=== PATIENT | male | born 1970 | race Caucasian/White ===

== ENCOUNTER 2018-03-06 14:21 | Emergency (ER) | payer MEDICAID ==
[~2018-03-06] VITALS: Ht 170.2 cm; Wt 78.0 kg
[~2018-03-06 14:21] MED LIST: CLIN300C85 PO; FLO0.4C PO; HYDR-4383 PO; IBUP-1986 PO; ONDA4TAB6 PO; ZOF4T PO
[2018-03-06 14:31] VITALS: BP 104/81
== END 2018-03-06 14:58 | disposition home or self-care (01) ==
LOC: ER 14:22
DX: G89.29 Other chronic pain (principal); R10.84 Generalized abdominal pain; R11.2 Nausea with vomiting, unspecified; F12.90 Cannabis use, unspecified, uncomplicated; Z79.899 Other long term (current) drug therapy; Z87.442 Personal history of urinary calculi; Z87.19 Personal history of other diseases of the digestive system; Z98.890 Other specified postprocedural states
CPT/HCPCS: 99281

== ENCOUNTER 2018-07-11 19:46 | Emergency (ER) | payer MEDICAID ==
[~2018-07-11] VITALS: Ht 170.2 cm; Wt 71.0 kg
[~2018-07-11 19:46] MED LIST changes: +CLIN-96 PO; -CLIN300C85 PO
[2018-07-11 19:58] VITALS: BP 131/79
== END 2018-07-11 20:45 | disposition left against medical advice (07) ==
LOC: ER 20:05
DX: R07.9 Chest pain, unspecified (principal); Z53.21 Procedure and treatment not carried out due to patient leaving prior to being seen by health care provider
CPT/HCPCS: 93005

== ENCOUNTER 2018-08-08 11:36 | Emergency (ER) | payer MEDICAID ==
[~2018-08-08] VITALS: Ht 170.2 cm; Wt 69.0 kg
[2018-08-08 13:31] VITALS: BP 125/83
== END 2018-08-08 13:33 | disposition home or self-care (01) ==
LOC: ER 11:36
DX: K40.90 Unilateral inguinal hernia, without obstruction or gangrene, not specified as recurrent (principal); F17.200 Nicotine dependence, unspecified, uncomplicated; F12.90 Cannabis use, unspecified, uncomplicated; F15.90 Other stimulant use, unspecified, uncomplicated; Z71.6 Tobacco abuse counseling; Z79.2 Long term (current) use of antibiotics; Z79.899 Other long term (current) drug therapy; Z87.442 Personal history of urinary calculi; Z98.890 Other specified postprocedural states
CPT/HCPCS: 99281

== ENCOUNTER 2018-09-09 14:22 | Emergency (ER) | payer MEDICAID ==
[~2018-09-09] VITALS: Ht 170.2 cm; Wt 73.2 kg
[2018-09-09 14:39] VITALS: BP 107/70
[2018-09-09] MEDS ORDERED: pilocarpine 2% ophthalmic drops 15ml LEFTEYE ONE (15:20)
[2018-09-09] MEDS ORDERED: ciprofloxacin 0.3% 2.5ml ophthalmic solution LEFTEYE ONE (15:20)
[2018-09-09] MEDS ORDERED: ACYC-202 PO (16:11)
== END 2018-09-09 16:25 | disposition home or self-care (01) ==
LOC: ER 14:23
DX: B02.30 Zoster ocular disease, unspecified (principal); F12.90 Cannabis use, unspecified, uncomplicated; Z86.19 Personal history of other infectious and parasitic diseases; Z87.442 Personal history of urinary calculi; Z98.890 Other specified postprocedural states; Z79.899 Other long term (current) drug therapy
CPT/HCPCS: 99283

== ENCOUNTER 2018-10-29 18:34 | Emergency (ER) | payer MEDICAID ==
[~2018-10-29] VITALS: Ht 170.2 cm; Wt 57.0 kg
[2018-10-29 19:03] VITALS: BP 123/84
[2018-10-29] MEDS ORDERED: penicillin G benzathine 1.2 million unit/2ml syringe IM ONE (21:10)
--- NOTE | 2018-10-29 23:07 | NUR ---
PATIENT HERE FOR POSSIBLE SYPHLIS. PATIENT IS WELL ORIENTED. NO DISTRESS . RX INJECTION GIVEN. DISCH HOME WITH FOLLOW UP INST. PATIENT EXHIBITS UNDERSTANDING.
== END 2018-10-29 23:15 | disposition home or self-care (01) ==
LOC: ER 18:34
DX: R49.0 Dysphonia (principal); F17.200 Nicotine dependence, unspecified, uncomplicated; F12.90 Cannabis use, unspecified, uncomplicated; Z20.2 Contact with and (suspected) exposure to infections with a predominantly sexual mode of transmission; Z86.14 Personal history of Methicillin resistant Staphylococcus aureus infection; Z87.442 Personal history of urinary calculi; Z98.890 Other specified postprocedural states
CPT/HCPCS: 96372; 99283; J0561

== ENCOUNTER 2018-11-02 11:47 | Emergency (ER) | payer MEDICAID ==
[~2018-11-02] VITALS: Ht 170.2 cm; Wt 76.4 kg
[2018-11-02 11:57] VITALS: BP 157/79
--- NOTE | 2018-11-02 14:51 | NUR ---
US TECH AT BEDSIDE
[2018-11-02] MEDS ORDERED: NAPR-56 PO (15:22)
[2018-11-02] MEDS ORDERED: HYDR-4383 PO (15:22)
[2018-11-02] MEDS ORDERED: naproxen 500mg tablet PO ONE (15:25)
[2018-11-02] MEDS ORDERED: HYDROcodone/acetaminophen 10/325mg tab PO ONE (15:25)
== END 2018-11-02 15:25 | disposition home or self-care (01) ==
LOC: ER 11:48
DX: S80.01XA Contusion of right knee, initial encounter (principal); F17.200 Nicotine dependence, unspecified, uncomplicated; F12.90 Cannabis use, unspecified, uncomplicated; F10.99 Alcohol use, unspecified with unspecified alcohol-induced disorder; Z98.890 Other specified postprocedural states; Z86.19 Personal history of other infectious and parasitic diseases; Z87.442 Personal history of urinary calculi; Z79.899 Other long term (current) drug therapy; W18.39XA Other fall on same level, initial encounter; Y93.89 Activity, other specified; Y92.89 Other specified places as the place of occurrence of the external cause; Y99.8 Other external cause status; Y90.9 Presence of alcohol in blood, level not specified
CPT/HCPCS: 73564; 93971; 99284

== ENCOUNTER 2018-12-05 16:00 | Emergency (ER) | payer MEDICAID ==
[~2018-12-05] VITALS: Ht 170.2 cm; Wt 77.8 kg
[~2018-12-05 16:00] MED LIST changes: -CLIN-96 PO; -FLO0.4C PO; -IBUP-1986 PO; -ONDA4TAB6 PO; -ZOF4T PO
[2018-12-05 16:45] VITALS: BP 145/76
== END 2018-12-05 16:51 | disposition home or self-care (01) ==
LOC: ER 16:00
DX: M71.21 Synovial cyst of popliteal space [Baker], right knee (principal); F12.90 Cannabis use, unspecified, uncomplicated; F19.90 Other psychoactive substance use, unspecified, uncomplicated; Z86.19 Personal history of other infectious and parasitic diseases; Z98.890 Other specified postprocedural states; Z79.899 Other long term (current) drug therapy
CPT/HCPCS: 99281

== ENCOUNTER 2019-01-18 02:01 | Emergency (ER) | payer MEDICAID ==
[~2019-01-18] VITALS: Ht 17.8 cm; Wt 73.6 kg
[2019-01-18 02:02] VITALS: BP 190/94
[2019-01-18] MEDS ORDERED: IBUP-1984 PO (02:24)
[2019-01-18] MEDS ORDERED: ketorolac trometh. 30mg/ml inj. IM ONE (02:25)
== END 2019-01-18 02:34 | disposition home or self-care (01) ==
LOC: ER 02:02
DX: M25.561 Pain in right knee (principal); F17.200 Nicotine dependence, unspecified, uncomplicated; F12.90 Cannabis use, unspecified, uncomplicated; F10.99 Alcohol use, unspecified with unspecified alcohol-induced disorder; Z98.890 Other specified postprocedural states; Z86.19 Personal history of other infectious and parasitic diseases; Z87.442 Personal history of urinary calculi; Z79.899 Other long term (current) drug therapy; Y90.9 Presence of alcohol in blood, level not specified
CPT/HCPCS: 96372; 99283; J1885

== ENCOUNTER 2019-02-16 20:54 | Emergency (ER) | payer MEDICAID ==
[~2019-02-16] VITALS: Ht 170.2 cm; Wt 72.7 kg
[2019-02-16] MEDS ORDERED: methylPREDNISolone sod succ 125mg/2ml vial IV ONE (21:20)
[2019-02-16] MEDS ORDERED: ipratropium/albuterol 3ml nebule NEB ONE (21:20)
[2019-02-16] MEDS ORDERED: normal saline 1000ML IV soln IV ONE (21:20)
[2019-02-16 22:12] LABS: BASOPHILS # (AUTO) 0.1 X10'3 (0-0.2); BASOPHILS % (AUTO) 0.8 % (0-1); EOSINOPHILS % (AUTO) 0.3 % (0-6); HEMATOCRIT 37.3 % (42.0-52.0); HEMOGLOBIN 12.8 g/dl (14.0-17.9); LYMPHOCYTES # (AUTO) 2.5 X10'3 (1.1-4.8); LYMPHOCYTES % (AUTO) 18.7 % (21-51); MEAN CORPUSCULAR HEMOGLOBIN 32.3 PG (27.0-31.0); MEAN CORPUSCULAR HGB CONC 34.4 g/dL (33.0-36.5); MEAN CORPUSCULAR VOLUME 93.9 FL (78-98); MEAN PLATELET VOLUME 10.6 FL (7.4-10.4); MONOCYTES # (AUTO) 1.4 X10'3 (0-0.9); MONOCYTES % (AUTO) 10.7 % (2-12); NEUTROPHILS # (AUTO) 9.1 X10'3 (1.8-7.7); NEUTROPHILS % (AUTO) 69.5 % (42-75); PLATELET COUNT 152 X10'3 (140-440); RED BLOOD COUNT 3.97 X10'6 (4.70-6.10); RED CELL DISTRIBUTION WIDTH 13.4 % (11.5-14.5); WHITE BLOOD COUNT 13.2 X10'3 (4.5-11.0)
[2019-02-16 22:26] LABS: ALANINE AMINOTRANSFERASE 31 U/L (12-78); ALBUMIN 3.4 G/DL (3.4-5.0); ALBUMIN/GLOBULIN RATIO 0.8 (1.1-1.5); ALKALINE PHOSPHATASE 86 IU/L (46-116); ANION GAP 7 (8-16); ASPARTATE AMINO TRANSFERASE 25 U/L (10-37); BILIRUBIN,TOTAL 0.6 MG/DL (0.1-1.0); BLOOD UREA NITROGEN 14 MG/DL (7-18); BUN/CREATININE RATIO 13.1 (5.4-32.0); CALCIUM 8.9 MG/DL (8.5-10.1); CHLORIDE 101 MMOL/L (99-107); CREATININE 1.07 MG/DL (0.60-1.10); GLUCOSE 97 MG/DL (70-104); POTASSIUM 3.7 MMOL/L (3.5-5.1); SODIUM 135 MMOL/L (135-145); TOTAL CARBON DIOXIDE 27.1 MMOL/L (24-32); TOTAL PROTEIN 7.9 G/DL (6.4-8.2); eGFR 74 ML/MIN
[2019-02-16 22:28] VITALS: BP 112/75
[2019-02-16] MEDS ORDERED: CefTRIAXone 2gm/D5W 50ml 50 ML IV ONE (22:45)
[2019-02-16] MEDS ORDERED: GUAI120015 PO (22:46)
[2019-02-16] MEDS ORDERED: PRED20TA PO (22:46)
[2019-02-16] MEDS ORDERED: ALBU6.7H9 INH (22:46)
[2019-02-16] MEDS ORDERED: AMOX-419 PO (22:46)
== END 2019-02-16 23:01 | disposition home or self-care (01) ==
LOC: ER 20:55
DX: J18.9 Pneumonia, unspecified organism (principal); F12.90 Cannabis use, unspecified, uncomplicated; F10.99 Alcohol use, unspecified with unspecified alcohol-induced disorder; Z87.442 Personal history of urinary calculi; Z98.890 Other specified postprocedural states; Z79.899 Other long term (current) drug therapy; Y90.9 Presence of alcohol in blood, level not specified
CPT/HCPCS: 36415; 71046; 80053; 83605; 84145; 85025; 87040; 93005; 94640; 94760; 96374; 96375; 99284; J0696; J2930; J7030; J7040; 96365

== ENCOUNTER 2019-02-27 11:17 | Emergency (ER) | payer MEDICAID, OTHER ==
[~2019-02-27] VITALS: Ht 170.2 cm; Wt 77.7 kg
[~2019-02-27 11:17] MED LIST changes: +ALBU6.7H9 INH; +AMOX-419 PO; +GUAI120015 PO; +heparin, porcine-25,000 units/D5-250ml premix IV ONE; +nitroGLYCERIN in D5W 50mg/250ml (Tridil) infusion IV ONE
[2019-02-27 11:30] VITALS: BP 128/79
--- NOTE | 2019-02-27 12:29 | NUR ---
PT ON ABO X 5 DAYS TX FOR PNE
[2019-02-27] MEDS ORDERED: ERYT1OIN6 LEFTEYE (13:56)
== END 2019-02-27 14:19 | disposition home or self-care (01) ==
LOC: ER 11:18
DX: H00.014 Hordeolum externum left upper eyelid (principal); F12.90 Cannabis use, unspecified, uncomplicated; Z86.19 Personal history of other infectious and parasitic diseases; Z98.890 Other specified postprocedural states; Z79.2 Long term (current) use of antibiotics; Z79.899 Other long term (current) drug therapy
CPT/HCPCS: 99283; J1644; J3490

== ENCOUNTER 2019-08-19 19:21 | Emergency (ER) | payer MEDICAID, OTHER ==
[~2019-08-19] VITALS: Ht 170.2 cm; Wt 75.0 kg
[~2019-08-19 19:21] MED LIST changes: -AMOX-419 PO; -heparin, porcine-25,000 units/D5-250ml premix IV ONE; -nitroGLYCERIN in D5W 50mg/250ml (Tridil) infusion IV ONE
[2019-08-19] MEDS ORDERED: ringers solution, lacted 1,000 ML IV ONE ×2 (19:55)
--- NOTE | 2019-08-19 20:18 | NUR ---
ATTEMPTED 3 IV STARTS. PT HAS A HISTORY OF IV DRUG USE. PT A DIFFICULT STICK.
[2019-08-19 20:42] LABS: ALANINE AMINOTRANSFERASE 31 U/L (12-78); ALBUMIN 3.5 G/DL (3.4-5.0); ALBUMIN/GLOBULIN RATIO 0.8 (1.1-1.5); ALKALINE PHOSPHATASE 101 IU/L (46-116); ANION GAP 9 (8-16); ASPARTATE AMINO TRANSFERASE 21 U/L (10-37); BILIRUBIN,TOTAL 0.2 MG/DL (0.1-1.0); BLOOD UREA NITROGEN 20 MG/DL (7-18); BUN/CREATININE RATIO 15.5 (5.4-32.0); CALCIUM 9.1 MG/DL (8.5-10.1); CHLORIDE 109 MMOL/L (99-107); CREATININE 1.29 MG/DL (0.60-1.10); EOSINOPHILS # (AUTO) 0.3 X10'3 (0-0.9); GLUCOSE 87 MG/DL (70-104); HEMATOCRIT 44.8 % (42.0-52.0); LYMPHOCYTES # (AUTO) 2.4 X10'3 (1.1-4.8); MAGNESIUM 1.5 MG/DL (1.5-2.4); MEAN CORPUSCULAR HEMOGLOBIN 31.6 PG (27.0-31.0); PHOSPHORUS 2.3 MG/DL (2.3-4.5); SODIUM 141 MMOL/L (135-145); TOTAL CARBON DIOXIDE 22.8 MMOL/L (24-32); TOTAL PROTEIN 8.1 G/DL (6.4-8.2); eGFR 60 ML/MIN
[2019-08-19 20:44] LABS: BASOPHILS % (AUTO) 0.6 % (0-1); EOSINOPHILS % (AUTO) 3.2 % (0-6); MEAN CORPUSCULAR HGB CONC 33.5 g/dL (33.0-36.5); MEAN CORPUSCULAR VOLUME 94.4 FL (78-98); MEAN PLATELET VOLUME 11.2 FL (7.4-10.4); MONOCYTES % (AUTO) 11.3 % (2-12); NEUTROPHILS # (AUTO) 4.8 X10'3 (1.8-7.7); NEUTROPHILS % (AUTO) 56.9 % (42-75); PLATELET COUNT 180 X10'3 (140-440); RED BLOOD COUNT 4.75 X10'6 (4.70-6.10); RED CELL DISTRIBUTION WIDTH 13.4 % (11.5-14.5); WHITE BLOOD COUNT 8.5 X10'3 (4.5-11.0)
[2019-08-19 21:05] LABS: PLATELET ESTIMATE NORMAL
--- NOTE | 2019-08-19 21:07 | NUR ---
SECOND IV FLUID BOLUS RUNNING, PT WILL BE DISCHARGED AFTER BOLUS IS FINISHED
[2019-08-19 21:08] LABS: LARGE PLATELETS MANY
[2019-08-19 21:42] VITALS: BP 143/92
== END 2019-08-19 21:44 | disposition home or self-care (01) ==
LOC: ER 19:22
DX: A05.9 Bacterial foodborne intoxication, unspecified (principal); R11.2 Nausea with vomiting, unspecified; R19.7 Diarrhea, unspecified; E86.0 Dehydration; F12.90 Cannabis use, unspecified, uncomplicated; F19.90 Other psychoactive substance use, unspecified, uncomplicated; Z86.19 Personal history of other infectious and parasitic diseases; Z87.442 Personal history of urinary calculi; Z98.890 Other specified postprocedural states; Z72.89 Other problems related to lifestyle; Z79.899 Other long term (current) drug therapy
CPT/HCPCS: 36415; 80053; 83735; 84100; 85025; 96360; 99283; J7120

== ENCOUNTER 2019-11-24 05:39 | Emergency (ER) | payer SELFPAY ==
[~2019-11-24] VITALS: Ht 170.2 cm; Wt 80.0 kg
[2019-11-24 05:42] VITALS: BP 157/92
[2019-11-24 06:13] LABS: BASOPHILS # (AUTO) 0.1 X10'3 (0-0.2); EOSINOPHILS % (AUTO) 0.3 % (0-6); LYMPHOCYTES # (AUTO) 1.6 X10'3 (1.1-4.8); MONOCYTES # (AUTO) 1.1 X10'3 (0-0.9); WHITE BLOOD COUNT 9.5 X10'3 (4.5-11.0)
[2019-11-24 06:15] LABS: BASOPHILS % (AUTO) 0.9 % (0-1); HEMATOCRIT 39.2 % (42.0-52.0); HEMOGLOBIN 13.2 g/dl (14.0-17.9); LYMPHOCYTES % (AUTO) 16.8 % (21-51); MEAN CORPUSCULAR HEMOGLOBIN 31.5 PG (27.0-31.0); MEAN CORPUSCULAR HGB CONC 33.7 g/dL (33.0-36.5); MEAN CORPUSCULAR VOLUME 93.7 FL (78-98); MEAN PLATELET VOLUME 11.4 FL (7.4-10.4); MONOCYTES % (AUTO) 11.7 % (2-12); NEUTROPHILS # (AUTO) 6.6 X10'3 (1.8-7.7); NEUTROPHILS % (AUTO) 70.3 % (42-75); PLATELET COUNT 127 X10'3 (140-440); RED BLOOD COUNT 4.19 X10'6 (4.70-6.10); RED CELL DISTRIBUTION WIDTH 13.1 % (11.5-14.5)
[2019-11-24 06:30] LABS: ALANINE AMINOTRANSFERASE 38 U/L (12-78); ALBUMIN 3.4 G/DL (3.4-5.0); ALBUMIN/GLOBULIN RATIO 0.8 (1.1-1.5); ALKALINE PHOSPHATASE 83 IU/L (46-116); ANION GAP 9 (8-16); ASPARTATE AMINO TRANSFERASE 42 U/L (10-37); BILIRUBIN,TOTAL 0.3 MG/DL (0.1-1.0); BLOOD UREA NITROGEN 11 MG/DL (7-18); BUN/CREATININE RATIO 10.8 (5.4-32.0); CALCIUM 8.5 MG/DL (8.5-10.1); CHLORIDE 101 MMOL/L (99-107); CREATININE 1.02 MG/DL (0.60-1.10); GLUCOSE 93 MG/DL (70-104); POTASSIUM 3.4 MMOL/L (3.5-5.1); SODIUM 133 MMOL/L (135-145); TOTAL CARBON DIOXIDE 23.4 MMOL/L (24-32); TOTAL PROTEIN 7.5 G/DL (6.4-8.2); eGFR 78 ML/MIN
[2019-11-24] MEDS ORDERED: NALO4SPR BOTHNARES (06:33)
== END 2019-11-24 06:52 | disposition home or self-care (01) ==
LOC: ER 05:40
DX: R07.89 Other chest pain (principal); R42 Dizziness and giddiness; F11.90 Opioid use, unspecified, uncomplicated; F12.90 Cannabis use, unspecified, uncomplicated; F15.90 Other stimulant use, unspecified, uncomplicated; Z86.19 Personal history of other infectious and parasitic diseases; Z98.890 Other specified postprocedural states; Z87.442 Personal history of urinary calculi; Z79.899 Other long term (current) drug therapy
CPT/HCPCS: 36415; 71045; 80053; 83880; 84484; 85025; 93005; 99285

== ENCOUNTER 2020-04-30 05:12 | Emergency (ER) | payer MEDICAID ==
[~2020-04-30] VITALS: Ht 170.2 cm; Wt 78.6 kg
[~2020-04-30 05:12] MED LIST changes: +NALO4SPR BOTHNARES
[2020-04-30 05:17] VITALS: BP 135/93
[2020-04-30] MEDS ORDERED: OFLO5DRO5 RIGHT EAR (05:38)
[2020-04-30] MEDS ORDERED: acetaminophen 325mg tablet PO ONE (05:40)
[2020-04-30] MEDS ORDERED: ibuprofen tablet 400 MG TABLET PO ONE (05:40)
== END 2020-04-30 08:34 | disposition home or self-care (01) ==
LOC: ER 05:13
DX: H60.91 Unspecified otitis externa, right ear (principal); R05 Cough; R09.89 Other specified symptoms and signs involving the circulatory and respiratory systems; F17.200 Nicotine dependence, unspecified, uncomplicated; F12.90 Cannabis use, unspecified, uncomplicated; F15.90 Other stimulant use, unspecified, uncomplicated; Z86.19 Personal history of other infectious and parasitic diseases; Z87.442 Personal history of urinary calculi; Z98.890 Other specified postprocedural states; Z79.899 Other long term (current) drug therapy
CPT/HCPCS: 99283

== ENCOUNTER 2020-05-10 00:40 | Emergency (ER) | payer MEDICAID ==
[~2020-05-10] VITALS: Ht 170.2 cm; Wt 79.5 kg
[~2020-05-10 00:40] MED LIST changes: +OFLO5DRO5 RIGHT EAR
[2020-05-10 00:46] VITALS: BP 134/89
[2020-05-10] MEDS ORDERED: morphine 4 MG/ML inj SYRINge IM ONE (01:15)
[2020-05-10] MEDS ORDERED: ondansetron 4mg rapidly disintigrating tab PO ONE (01:15)
[2020-05-10] MEDS ORDERED: ibuprofen tablet 400 MG TABLET PO ONE (01:15)
== END 2020-05-10 01:37 | disposition home or self-care (01) ==
LOC: ER 00:41
DX: K40.91 Unilateral inguinal hernia, without obstruction or gangrene, recurrent (principal); F12.90 Cannabis use, unspecified, uncomplicated; F15.90 Other stimulant use, unspecified, uncomplicated; F11.90 Opioid use, unspecified, uncomplicated; F17.200 Nicotine dependence, unspecified, uncomplicated; Z86.19 Personal history of other infectious and parasitic diseases; Z87.442 Personal history of urinary calculi; Z98.890 Other specified postprocedural states; Z79.899 Other long term (current) drug therapy
CPT/HCPCS: 96372; 99283; J2270

== ENCOUNTER 2021-06-05 18:27 | Emergency (ER) | payer MEDICAID ==
[~2021-06-05] VITALS: Ht 170.2 cm; Wt 80.5 kg
[2021-06-05 18:55] VITALS: BP 132/88
== END 2021-06-05 20:44 | disposition left against medical advice (07) ==
LOC: ER 18:28
DX: R06.02 Shortness of breath (principal); Z53.21 Procedure and treatment not carried out due to patient leaving prior to being seen by health care provider

== ENCOUNTER 2021-12-08 22:11 | Emergency (ER) | payer MEDICAID ==
[~2021-12-08] VITALS: Ht 170.2 cm; Wt 77.3 kg
[2021-12-08 22:54] VITALS: BP 137/88
== END 2021-12-09 04:57 | disposition left against medical advice (07) ==
LOC: ER 22:12
DX: R10.9 Unspecified abdominal pain (principal); R11.10 Vomiting, unspecified; Z53.21 Procedure and treatment not carried out due to patient leaving prior to being seen by health care provider

== ENCOUNTER 2022-03-07 00:50 | Emergency (ER) | payer MEDICAID ==
[~2022-03-07] VITALS: Ht 170.2 cm; Wt 77.2 kg
[~2022-03-07 00:50] MED LIST changes: +ALBU6.7H14 INH; -ALBU6.7H9 INH
[2022-03-07] MEDS ORDERED: ondansetron/PF 4mg/2ml inj IV ONE (01:35)
[2022-03-07] MEDS ORDERED: normal saline 1000ml 1,000 ML IV ONE (01:35)
[2022-03-07] MEDS ORDERED: fentaNYL/PF 50MCG/1 ML 2ML syringe IV ONE (01:35)
[2022-03-07] MEDS ORDERED: propofol 10mg/ml 20ml vial IV ONE (01:35)
[2022-03-07 03:09] VITALS: BP 157/97
== END 2022-03-07 03:13 | disposition home or self-care (01) ==
LOC: ER 00:50
DX: K40.90 Unilateral inguinal hernia, without obstruction or gangrene, not specified as recurrent (principal); F12.10 Cannabis abuse, uncomplicated; F15.10 Other stimulant abuse, uncomplicated; F11.10 Opioid abuse, uncomplicated; Z87.442 Personal history of urinary calculi
CPT/HCPCS: 96374; 96375; 99152; 99285; J2405; J3010; J7030; 99284; A4620

== ENCOUNTER 2022-05-11 13:22 | Emergency (ER) | payer MEDICAID ==
[~2022-05-11] VITALS: Ht 170.2 cm; Wt 70.0 kg
[2022-05-11 13:29] VITALS: BP 146/91
[2022-05-11] MEDS ORDERED: diazepam inj 5 MG/ML inj. IV ONE (15:10)
[2022-05-11] MEDS ORDERED: morphine 4 MG/ML inj SYRINge IV ONE (15:10)
== END 2022-05-11 15:44 | disposition home or self-care (01) ==
LOC: ER 13:23
DX: K40.90 Unilateral inguinal hernia, without obstruction or gangrene, not specified as recurrent (principal); F12.90 Cannabis use, unspecified, uncomplicated; F15.20 Other stimulant dependence, uncomplicated
CPT/HCPCS: 96374; 96375; 99284; J2270; J3360

== ENCOUNTER 2022-08-19 03:47 | Emergency (ER) | payer MEDICAID ==
[~2022-08-19] VITALS: Ht 170.2 cm; Wt 72.2 kg
[2022-08-19 04:41] VITALS: BP 155/96
== END 2022-08-19 06:38 | disposition home or self-care (01) ==
LOC: ER 03:49
DX: M77.8 Other enthesopathies, not elsewhere classified (principal); M25.522 Pain in left elbow; F31.9 Bipolar disorder, unspecified; F12.90 Cannabis use, unspecified, uncomplicated; F15.90 Other stimulant use, unspecified, uncomplicated; F11.90 Opioid use, unspecified, uncomplicated; F17.200 Nicotine dependence, unspecified, uncomplicated; Z79.899 Other long term (current) drug therapy; Z87.442 Personal history of urinary calculi
CPT/HCPCS: 73080; 99283; A6449

== ENCOUNTER 2023-06-07 03:06 | Emergency (ER) | payer MEDICAID ==
[~2023-06-07] VITALS: Ht 170.2 cm; Wt 81.0 kg
[2023-06-07] MEDS: metoclopramide 5 mg/ml inj IV ONE (03:52)
[2023-06-07] MEDS: diphenhydrAMINE 50 mg/ml inj IV ONE (03:52)
[2023-06-07] MEDS: normal saline 1000ML IV soln IVB ONE (03:52)
[2023-06-07] MEDS: acetaminophen 1,000mg/100ml IV 100 ML IV STA (03:52)
[2023-06-07 05:02] VITALS: BP 153/91; PULSE 69; RESP 18; TEMP 97.9; O2SAT 99
== END 2023-06-07 05:05 | disposition home or self-care (01) ==
LOC: ER 03:06
DX: M54.2 Cervicalgia (principal); R51.9 Headache, unspecified; M25.511 Pain in right shoulder; M25.512 Pain in left shoulder; Z87.442 Personal history of urinary calculi; F12.90 Cannabis use, unspecified, uncomplicated; F15.90 Other stimulant use, unspecified, uncomplicated; F11.90 Opioid use, unspecified, uncomplicated; Z79.899 Other long term (current) drug therapy
CPT/HCPCS: 96365; 96375; 99284; J0131; J1200; J2765; J7030

== ENCOUNTER 2023-10-03 22:03 | Emergency (ER) | payer SELFPAY ==
[~2023-10-03] VITALS: Ht 170.2 cm; Wt 72.7 kg
[2023-10-03 22:06] VITALS: BP 189/107; PULSE 70; TEMP 97.7; O2SAT 100
[2023-10-03 22:17] VITALS: RESP 15
[2023-10-03] MEDS ORDERED: NALO4SPR BOTHNARES (22:45)
== END 2023-10-03 22:59 | disposition left against medical advice (07) ==
LOC: ER 22:03
DX: T40.601A Poisoning by unspecified narcotics, accidental (unintentional), initial encounter (principal); F12.90 Cannabis use, unspecified, uncomplicated; F15.90 Other stimulant use, unspecified, uncomplicated; Y92.89 Other specified places as the place of occurrence of the external cause; Z79.899 Other long term (current) drug therapy; Z79.2 Long term (current) use of antibiotics
CPT/HCPCS: 93005; 99283

== ENCOUNTER 2024-03-24 12:04 | Emergency (ER) | payer MEDICAID ==
[~2024-03-24] VITALS: Ht 170.2 cm; Wt 78.4 kg
[2024-03-24 12:10] VITALS: BP 179/111; PULSE 79; TEMP 97.8; O2SAT 99
[2024-03-24] MEDS ORDERED: ibuprofen tablet 400 MG TABLET PO ONE (14:55)
[2024-03-24] MEDS: ibuprofen 200mg tablet PO ONE (15:23)
[2024-03-24] MEDS: acetaminophen 325mg tablet PO ONE (15:23)
[2024-03-24] MEDS: LIDOcaine 5% patch TP STA (15:40)
[2024-03-24] MEDS ORDERED: TRAM50TA2 PO (16:16)
[2024-03-24] MEDS ORDERED: IBUP-1984 PO (16:16)
[2024-03-24] MEDS ORDERED: LIDO700A32 TD (16:16)
[2024-03-24 16:35] VITALS: RESP 18
[2024-03-25] MEDS ORDERED: LIDOcaine 5% patch TP SCH (08:00)
== END 2024-03-24 16:36 | disposition home or self-care (01) ==
LOC: ER 12:05
DX: S46.212A Strain of muscle, fascia and tendon of other parts of biceps, left arm, initial encounter (principal); F12.90 Cannabis use, unspecified, uncomplicated; F15.90 Other stimulant use, unspecified, uncomplicated; Z79.899 Other long term (current) drug therapy; Z87.11 Personal history of peptic ulcer disease; Z87.440 Personal history of urinary (tract) infections; Z98.890 Other specified postprocedural states; W19.XXXA Unspecified fall, initial encounter; Y93.89 Activity, other specified; Y92.89 Other specified places as the place of occurrence of the external cause; Y99.8 Other external cause status
CPT/HCPCS: 73030; 99284; A4565

== ENCOUNTER 2024-06-15 16:00 | Emergency (ER) | payer MEDICAID ==
[~2024-06-15] VITALS: Ht 170.2 cm; Wt 75.7 kg
[~2024-06-15 16:00] MED LIST changes: +LIDO700A32 TD
[2024-06-15 16:15] VITALS: BP 135/93; PULSE 82; RESP 18; TEMP 97.8; O2SAT 97
[2024-06-15] MEDS ORDERED: CLIN300C63 PO (16:52)
[2024-06-15] MEDS ORDERED: CHLO118L TOP (16:52)
[2024-06-15] MEDS ORDERED: MUPI22OI30 TOP (16:52)
== END 2024-06-15 17:06 | disposition home or self-care (01) ==
LOC: ER 16:01
DX: L01.00 Impetigo, unspecified (principal); F31.9 Bipolar disorder, unspecified; F12.90 Cannabis use, unspecified, uncomplicated; F15.90 Other stimulant use, unspecified, uncomplicated; F11.90 Opioid use, unspecified, uncomplicated; Z98.890 Other specified postprocedural states; Z87.442 Personal history of urinary calculi; Z79.899 Other long term (current) drug therapy
CPT/HCPCS: 99283